=== PATIENT | male | born 1975 | race Caucasian/White ===

== ENCOUNTER 2022-12-23 10:22 | Emergency (ER) | payer OTHER, SELFPAY ==
[2022-12-23 10:50] VITALS: BP 149/88; PULSE 100; RESP 18; TEMP 36.9; O2SAT 98
--- NOTE | 2022-12-23 11:15 | ED.GENADULT ---
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 This varicose vein has been present for approximately 5 years. He started experiencing some pain 2 days ago and states it is now firm. Currently rates his pain 4/10 and has been taking Tylenol and ibuprofen with some relief. Denies numbness or tingling in the leg or foot. Patient had an injury in October where he tripped and fell and injured his left leg. He has had swelling and redness along with cellulitis to this leg subsequently. Denies any increased swelling or redness to his leg. Denies numbness or tingling in the leg or foot. Denies pain to the legs, except for the localized area of the varicose vein. Review of Systems Review of Systems: CONSTITUTIONAL: Denies body aches, fever, chills, or sweats. EYES: Denies visual changes, redness, or discharge. ENT: Denies rhinorrhea, congestion, sore throat, or otalgia. CARDIOVASCULAR: Denies chest pain, palpitations, or edema. RESPIRATORY: Denies cough or dyspnea. GASTROINTESTINAL: Denies abdominal pain, nausea, vomiting, or diarrhea. GENITOURINARY: Denies dysuria or hematuria. SKIN: + varicose vein pain MUSCULOSKELETAL: Denies back pain, joint pain, or myalgia. NEUROLOGIC: Denies headache, numbness, tingling, or weakness. PSYCH: Denies depression or anxiety. PMFSH Comments At time of signature, I have reviewed and agree with nursing past medical, surgical, social and family history unless otherwise noted. Please see nursing chart for further information. There is no relevant family history pertinent to the presenting complaint Exam Narrative: GENERAL: Well-appearing, well-nourished, and in no acute distress. HEAD: Normocephalic, atraumatic. EYES: EOMI. No redness or drainage. Conjunctivae normal. ENT: Mucous membranes pink and moist. NECK: Normal AROM. CHEST: No respiratory distress. EXTREMITIES: Patient has somewhat large varicosity to left medial thigh measuring approximately 3-4 cm round that protrudes from skin approximately 1-1.5 cm. This area is soft and nontender. Just adjacent to this varicosity there is another smaller varicosity the patient states his new that is tender to palpation. SKIN: Warm, dry, no rash. Capillary refill normal. Normal skin turgor. NEURO: No focal deficits. Alert and oriented x3. Gait steady. PSYCH: Normal affect. No signs of depression or anxiety. Course Course Level of Care: Express Care Visit Vital Signs Vital signs: Vital Signs Temperature 98.4 F 12/23/22 10:50 Pulse Rate 100 12/23/22 10:50 Respiratory Rate 18 12/23/22 10:50 Blood Pressure 149/88 H 12/23/22 10:50 Pulse Oximetry 98 12/23/22 10:50 Oxygen Delivery Room Air 12/23/22 10:50 Temperature 98.4 F 12/23/22 10:50 Pulse Rate 100 12/23/22 10:50 Respiratory Rate 18 12/23/22 10:50 Blood Pressure 149/88 H 12/23/22 10:50 Pulse Oximetry 98 12/23/22 10:50 Oxygen Delivery Room Air 12/23/22 10:50 Reviewed. Pt has been instructed to follow up with his PCP regarding his elevated blood pressure today. Medical Decision Making MDM Narrative Medical decision making narrative: Patient's symptoms are not consistent with DVT at this time. Since I cannot rule out all types of thrombosis at Urgent Care, I offered ER transfer. Patient declined. States he will call his PCP on Sunday. Instructed patient to continue NSAIDs. Anticipatory guidance given. Differential Diagnosis Differential Diagnosis: Thrombophlebitis, DVT, cellulitis, varicose vein, phlebitis Vital Signs Vital Signs: Vital Signs Temperature 98.4 F 12/23/22 10:50 Pulse Rat
== END 2022-12-23 11:24 | disposition home or self-care (01) ==
PROVIDERS: Emergency Provider Nurse Practitioner; PCP Family Medicine
DX: I83.812 Varicose veins of left lower extremity with pain (principal)
CPT/HCPCS: 99202; G0463

== ENCOUNTER 2023-09-29 08:03 | Emergency (ER) | payer OTHER, SELFPAY ==
[2023-09-29 08:14] VITALS: BP 118/74; PULSE 73; RESP 18; TEMP 36.4; O2SAT 97
--- NOTE | 2023-09-29 08:17 | ED.EAR ---
HPI - Ear Problem General Chief complaint: Ear Stated complaint: ear ache Time Seen by Provider: 09/29/23 08:18 Source: patient Mode of arrival: ambulatory Limitations: no limitations History of Present Illness HPI Narrative: 48 y/o male presented for c/o left ear pain x4 days. Pain is worse this morning, described as dull ache. denies muffled hearing, ear drainage, tinnitus, dizziness, n/v/d/f/c. Pain started after doing hand stands in a swimming pool. MD Complaint: ear pain Related Data Home Medications Medication Instructions Recorded Confirmed apixaban 5 mg tablet (Eliquis) mg 09/29/23 furosemide 20 mg tablet mg 09/29/23 losartan 100 mg tablet mg 09/29/23 metformin 500 mg tablet,extended mg PO 09/29/23 release 24 hr tirzepatide 5 mg/0.5 mL 5 mg subcut WEEKLY 09/29/23 09/29/23 subcutaneous pen injector Allergies Allergy/AdvReac Type Severity Reaction Status Date / Time No Known Allergies Allergy Verified 09/29/23 08:13 Review of Systems Review of Systems: CONSTITUTIONAL: Denies malaise, chills, or fever. EYES: Denies visual changes, redness, or discharge. ENT: Denies rhinorrhea, congestion, sinus pain, and sore throat. Reports ear pain CARDIOVASCULAR: Denies chest pain, palpitations, or edema. RESPIRATORY: Denies cough or dyspnea. GASTROINTESTINAL: Denies abdominal pain, nausea, vomiting, diarrhea SKIN: Denies rash or itching. MUSCULOSKELETAL: Denies myalgia. NEUROLOGIC: Denies headache. All systems reviewed & are unremarkable except as noted in HPI and below [facility] Comments At time of signature, agree with nursing past medical, surgical, social and family history. There is no relevant family history pertinent to the presenting complaint Exam Narrative: GENERAL: Well-appearing, EYES: PERRLA, conjunctivae clear ENT: Nares clear. Mucous membranes moist. Right TM pearly chao with normal light reflex; Left TM with clear effusion, no canal redness, swelling or drainage, no tragal tenderness. Oropharynx not erythematous without lesions. Tonsils enlarged 2+ without exudate, no drooling, no hoarseness, no trismus, uvula midline. NECK: Supple. No lymphadenopathy CHEST: Clear to auscultation, breath sounds equal. HEART: Regular rate and rhythm. No murmur heard. SKIN: Warm, dry, no rash. NEURO: Alert and oriented x3. PSYCH: Normal mood and affect Course Course Emergency Course: Patient is aware of diagnosis, understands and agrees to treatment plan. Anticipatory guidance given. Patient agrees to follow-up as directed and is aware of reasons to seek care at the emergency department. Portions of this record may have been created with voice recognition software Level of Care: Express Care Visit Vital Signs Vital signs: Vital Signs Temperature 97.5 F L 09/29/23 08:14 Pulse Rate 73 09/29/23 08:14 Respiratory Rate 18 09/29/23 08:14 Blood Pressure 118/74 09/29/23 08:14 Pulse Oximetry 97 09/29/23 08:14 Oxygen Delivery Room Air 09/29/23 08:14 Temperature 97.5 F L 09/29/23 08:14 Pulse Rate 73 09/29/23 08:14 Respiratory Rate 18 09/29/23 08:14 Blood Pressure 118/74 09/29/23 08:14 Pulse Oximetry 97 09/29/23 08:14 Oxygen Delivery Room Air 09/29/23 08:14 Reviewed Medical Decision Making MDM Narrative Medical decision making narrative: Discussed physical exam findings, pt declined strep testing. Advised supportive measures and signs/symptoms to go to the ER. Patient is appropriate for outpatient treatment and follow-up. Differential Diagnosis Differential Diagnosis: Coronavirus, strep pharyngitis, allergic rhinitis, upper respiratory tract infection, sinusitis, rhinosinusitis, nasopharyngitis, viral pharyngitis, otitis media, otitis externa, eustachian tube dysfunction, foreign body, cerumen impaction. Vital Signs Vital Signs: Vital Signs Temperature 97.5 F L 09/29/23 08:14 Pulse Rate 73 09/29/23 08:14 Respiratory Rate 18 09/29/23 08:1
== END 2023-09-29 08:30 | disposition home or self-care (01) ==
PROVIDERS: Emergency Provider Nurse Practitioner Family; PCP Family Medicine
DX: H65.02 Acute serous otitis media, left ear (principal); I10 Essential (primary) hypertension; E11.9 Type 2 diabetes mellitus without complications
CPT/HCPCS: 99211; G0463